=== PATIENT | male | born 1985 | race Caucasian/White ===

== ENCOUNTER 2017-10-02 23:38 | Emergency (ER) | END 2017-10-03 03:45 | disposition home or self-care (01) ==

== ENCOUNTER 2018-04-16 21:12 | Emergency (ER) | payer OTHER ==
[~2018-04-16] VITALS: Wt 108.9 kg
[~2018-04-16 21:12] MED LIST: HYDR-3672 PO
[2018-04-16 21:17] VITALS: RESP 19
[2018-04-16] MEDS ORDERED: IBUP-1542 PO (23:10)
[2018-04-16 23:48] VITALS: BP 157/84; PULSE 83
--- NOTE | 2018-04-17 04:11 | ERD ---
ER Documentation Chief Complaint Chief Complaint bib family for right hand cramp and arm cramp s/p receiving flu vaccine HPI 32 -year-old male presents to the emergency department complaining right hand cramped that he was after he received a flu shot in his arm earlier today. However patient states that he does not have any more pain anymore. Patient denies any recent range of motion. Nuys any medications. Denies any weakness ROS All systems reviewed and are negative except as per history of present illness. Medications Home Meds Active Scripts Ibuprofen* (Motrin*) 600 Mg Tab, 600 MG PO Q6H PRN for PAIN AND OR ELEVATED TEMP, #30 TAB Prov:LEN ESTRADA PA-C 04/16/18 Hydralazine Hcl* (Hydralazine Hcl*) 50 Mg Tab, 50 MG PO Q6, #120 TAB Prov:OPHELIA LAM 10/03/17 Allergies Allergies: Coded Allergies: No Known Allergy (Unverified , 10/03/17) PMhx/Soc History of Surgery: No Anesthesia Reaction: No Hx Neurological Disorder: Yes (CVA) Hx Respiratory Disorders: No Hx Cardiac Disorders: Yes (htn) Hx Psychiatric Problems: No Hx Miscellaneous Medical Probl: Yes (Pre-Diabetes) Hx Alcohol Use: No Hx Substance Use: No Hx Tobacco Use: No Smoking Status: Never smoker Physical Exam Vitals Vital Signs Date Temp Pulse Resp B/P (MAP) Pulse Ox O2 O2 Flow FiO2 Time Delivery Rate 04/16/18 83 157/84 23:48 (108) 04/16/18 98.7 95 19 166/99 100 21:17 (121) Physical Exam Const: No acute distress Head: Atraumatic Eyes: Normal Conjunctiva ENT: Normal External Ears, Nose and Mouth. Neck: Full range of motion. No meningismus. Resp: Clear to auscultation bilaterally Cardio: Regular rate and rhythm, no murmurs Abd: Soft, non tender, non distended. Normal bowel sounds Skin: No petechiae or rashes Back: No midline or flank tenderness Ext: No cyanosis, or edema patient had full range of motion of all extremities and hand. He had equal hand shampoo technician Neur: Awake and alert Psych: Normal Mood and Affect Procedures/MDM patient Complains of right hand cramp that was short-lived after getting the flu shot in his right arm earlier today, this may be a spasm or cramp. I doubt any complication from the flu shot. Patient stable to be discharged home with return precautions Departure Diagnosis: Primary Impression: Hand pain Condition: Stable Patient Instructions: Muscle Spasm Additional Instructions: Regrese a estas instalaciones si no se mejora aline esperbamos o aline kayla boycemos. LEN ESTRADA PA-C Apr 17, 2018 04:11
== END 2018-04-16 23:48 | disposition home or self-care (01) ==
LOC: FTE 21:12
DX: M79.641 Pain in right hand (principal); I10 Essential (primary) hypertension; Z86.73 Personal history of transient ischemic attack (TIA), and cerebral infarction without residual deficits
CPT/HCPCS: 99282

== ENCOUNTER 2018-08-05 20:25 | Emergency (ER) | payer SELFPAY ==
[~2018-08-05] VITALS: Ht 165.1 cm; Wt 113.0 kg
[~2018-08-05 20:25] MED LIST changes: +IBUP-1542 PO
[2018-08-05 20:40] VITALS: Ht 165.1 cm; Wt 113.0 kg
[2018-08-05] MEDS ORDERED: IBUP-1542 PO (21:32)
--- NOTE | 2018-08-05 21:36 | ERD ---
ER Documentation Chief Complaint Chief Complaint rt ankle pain; hx injury 13 yrs ago; not reinjure HPI 32-year-old male with no reported past medical surgical history who presents with complaint of right ankle pain. Patient denies any recent fall or trauma. Relates history of severe ankle sprain probably 13 years ago. Describes dull pain to the lateral aspect of the ankle. Pain made worse with ambulation. 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 Time examination patient is able to take multiple steps and his gait is pretty steady. His exam is pretty unremarkable. ROS All systems reviewed and are negative except as per history of present illness. Medications Home Meds Active Scripts Ibuprofen* (Motrin*) 600 Mg Tab, 600 MG PO Q6, #30 TAB Prov:JAYLIN LOWRY PA-C 08/05/18 Ibuprofen* (Motrin*) 600 Mg Tab, 600 MG PO Q6H PRN for PAIN AND OR ELEVATED TEMP, #30 TAB Prov:LEN ESTRADA PA-C 04/16/18 Hydralazine Hcl* (Hydralazine Hcl*) 50 Mg Tab, 50 MG PO Q6, #120 TAB Prov:OPHELIA LAM 10/03/17 Allergies Allergies: Coded Allergies: No Known Allergy (Unverified , 08/05/18) PMhx/Soc Medical and Surgical Hx: pt denies Surgical Hx History of Surgery: No Anesthesia Reaction: No Hx Neurological Disorder: Yes (CVA) Hx Respiratory Disorders: No Hx Cardiac Disorders: Yes (htn) Hx Psychiatric Problems: No Hx Miscellaneous Medical Probl: Yes (Pre-Diabetes) Hx Alcohol Use: Yes (socially) Hx Substance Use: No Hx Tobacco Use: No Smoking Status: Current every day smoker FmHx Family History: No diabetes, No coronary disease, No other Physical Exam Vitals Vital Signs Date Temp Pulse Resp B/P (MAP) Pulse Ox O2 O2 Flow FiO2 Time Delivery Rate 08/05/18 99.0 79 20 175/105 98 20:40 (128) Physical Exam Const: No acute distress, obese Head: Atraumatic Eyes: Normal Conjunctiva ENT: Normal External Ears, Nose and Mouth. Neck: Full range of motion. No meningismus. Resp: Clear to auscultation bilaterally Cardio: Regular rate and rhythm, no murmurs Abd: Soft, non tender, non distended. Normal bowel sounds Skin: No petechiae or rashes Back: No midline or flank tenderness Ext: No cyanosis, mild edema to lateral aspect R ankle, no erythema, gait is stable, patient ambulating without issue Neur: Awake and alert Psych: Normal Mood and Affect Procedures/MDM 32-year-old male who presents with complaint of right ankle pain. No history of trauma or fall. His symptoms are most likely musculoskeletal in nature. There is no indications for additional work-up such as imaging given history and examination. Discharge with NSAIDs. Blood Pressure Assessment: Patient's blood pressure was elevated (>120/80) but appears stable without evidence of hypertension emergency or urgency. The patient was counseled about the risks of hypertension and urged to pursue outpatient monitoring and therapy within a week with their primary care physician. DISPOSITION PLAN: We discussed follow up with the patient's primary care doctor within 24 to 48 hours. Patient counseled regarding my diagnostic impression and care plan. Prior to discharge all questions answered. Pt agrees with treatment plan and understands strict return precautions. Precautionary instructions provided including instructions to return to the ER if not improving or for any worsening or changing symptoms or concerns. Disclaimer: Inadvertent spelling and grammatical errors are likely due to EHR/dictation software use and do not reflect on the overall quality of patient care. Also, please note that the electronic time recorded on this note does not necessarily reflect the actual time of the patient encounter. Departure Diagnosis: Primary Impression: Ankle pain Condition: Stable Patient Instructions: Hypertension, To Be Confirmed Referrals: [facility] YOU HAVE RECEIVED A MEDICAL SCREENING EXAM AND THE RESULTS INDICATE THAT YOU DO NOT HAVE A CONDITION THAT REQUIRES URGENT TREATMENT IN THE EMERGENCY DEPARTMENT. FURTHER EVALUATION AND TREATMENT OF YOUR CONDITION CAN WAIT UNTIL YOU ARE SEEN IN YOUR DOCTORS OFFICE WITHIN THE NEXT 1-2 DAYS. IT IS YOUR RESPONSIBILITY TO MA KE AN APPOINTMENT FOR FOLOW-UP CARE. IF YOU HAVE A PRIMARY DOCTOR --you should call your primary doctor and schedule an appointment IF YOU DO NOT HAVE A PRIMARY DOCTOR YOU CAN CALL OUR PHYSICIAN REFERRAL HOTLINE AT IF YOU CAN NOT AFFORD TO SEE A PHYSICIAN YOU CAN CHOSE FROM THE FOLLOWING [facility] [address] [facility]. [facility] [address] [facility]. [facility] [address] [facility] [address] [facility] [address] [facility]. [facility] [address] Additional Instructions: Call your primary care doctor TOMORROW for an appointment during the next 2-3 days.See the doctor sooner or return here if your condition worsens before your appointment time. JAYLIN LOWRY PA-C Aug 05, 2018 21:36
[2018-08-05 21:40] VITALS: BP 158/95; PULSE 80; RESP 16
== END 2018-08-05 21:41 | disposition home or self-care (01) ==
LOC: FTE 20:25
DX: M25.571 Pain in right ankle and joints of right foot (principal); F17.210 Nicotine dependence, cigarettes, uncomplicated; I10 Essential (primary) hypertension; Z86.73 Personal history of transient ischemic attack (TIA), and cerebral infarction without residual deficits
CPT/HCPCS: 99282

== ENCOUNTER 2018-11-26 02:14 | Emergency (ER) | payer SELFPAY ==
[~2018-11-26] VITALS: Ht 170.2 cm; Wt 127.7 kg
[~2018-11-26 02:14] MED LIST changes: +AMOX1TAB10 PO; +IBUP800T48 PO
[2018-11-26 02:16] VITALS: BP 195/99; PULSE 82; RESP 18; Ht 170.2 cm; Wt 127.7 kg
[2018-11-26] MEDS ORDERED: IBUPROFEN 800 MG TAB PO ONE (02:30)
== END 2018-11-26 02:35 | disposition home or self-care (01) ==
LOC: FTE 02:14
DX: K08.89 Other specified disorders of teeth and supporting structures (principal); I10 Essential (primary) hypertension; Z86.73 Personal history of transient ischemic attack (TIA), and cerebral infarction without residual deficits
CPT/HCPCS: 99283